=== PATIENT | female | born 1980 | race Caucasian/White ===

== ENCOUNTER 2022-04-15 08:40 | Outpatient (REF) | payer MEDICAID, SELFPAY ==
--- NOTE | 2022-04-15 08:15 | PAPFT_PTH ---
PATIENT: Jami Jones LOC: [facility]#:[id number] AGE/SX: 41/F ROOM: RE04/15/[address]: Toña Goldman : 1980 BED: DIS: 04/15/2022 SPEC #: [id number] RECD: 04/15/22 15:04 STATUS: CRISTOPHER REIona #: [id number] GEE: 04/15/22 08:[address]: Toña Goldman DEPT: [facility] Cytology RECD BY: Leesa Whittington ENTERED: 04/15/22 15:04 SP TYPE: PAPFT OTHR DR: Soraya Carlisle Tissues: 1 - CX/ENDOCX FOR PAP SMEARS Procedures: PAP THIN PREP/UVM Screening HPV DNA PROBE Comments: [id number] (CHLAMYDIA/GC)
[2022-04-16 13:49] LABS: Chlamydia Result Negative (Negative); GC Result Negative (Negative)
== END 2022-04-15 08:41 | disposition home or self-care (01) ==
LOC: NCHCN 08:40
PROVIDERS: PCP Dentist; Visit Provider Family Medicine
DX: Z12.4 Encounter for screening for malignant neoplasm of cervix (principal); Z11.3 Encounter for screening for infections with a predominantly sexual mode of transmission; Z11.51 Encounter for screening for human papillomavirus (HPV)
CPT/HCPCS: 87491; 87591; 88142; 87624

== ENCOUNTER 2024-02-17 22:10 | Outpatient (REF) | payer BC, SELFPAY ==
--- OUTSIDE RECORDS SUMMARY | 2024-02-17 22:40 | XMS_ITS | Clinical Summary ---
Author Organization [facility] Address [address] [place] [address] Care Team Providers Care Claims Specialist Name Role Phone Toña Goldman MD Primary Care Provider [phone] Allergies Active Allergy Reactions Criticality Noted Date Comments Penicillins Rash 05/09/2015 Sulfa (Sulfonamide Antibiotics) Rash 04/30 Medications predniSONE (DELTASONE) 20 mg tablet Take 20 mg by mouth 3 times daily Active diphenhydrAMINE (BENADRYL) 25 mg capsule Take 25 mg by mouth 4 times daily Active clobetasol (TEMOVATE) 0.05 % cream Apply topically to affected area 2 times daily Do not apply to face, armpit or groin. Twice daily to the legs for 10 days 60 g 1 6 Active triamcinolone (KENALOG) 0.1 % cream Apply topically to affected area 2 times daily Nightly to the trunk X 10 days. Stop sooner if symptoms resolve 454 g 0 6 Active Family History Medical History Relation Comments Breast Cancer Maternal Aunt Relation Status Comments Maternal Aunt Social History Tobacco Use Types Packs/Day Years Used Date Smoking Tobacco: Passive Smo ke Exposure - Never Smoker Alcohol Use Standard Drinks/Week Comments Yes 3 (1 standard drink = 0.6 oz pur e alcohol) Comments No Sex and Gender Information Value Date Recorded Sex Assigned at Not on file Legal Sex Female 16:27 EST Gender Identity Not on file Sexual Orientation Not on file Obstetrics History Para Term AB IAB SAB Ectopic Multiple Livin g Live Births 1 1 Date Outcome GA Total Labor Labor/2nd/3rd Weight Sex Type Anes PTL Gabriella A1 A5 Name Clin Para Plan of Treatment Health Maintenance Due Date Last Done Comments Hepatitis C Screen 1980 Hepatitis B Vaccine (1 of 3 - 19+ 3-dose series) 11/23 COVID-19 Vaccine (2023- season) 2023 Insurance [place] [address] [address] Care Teams Claims Specialist Relationship Specialty Start Date End Date Toña Goldman MD [address] [place] [id number] PCP - General 05/08/15
--- OUTSIDE RECORDS SUMMARY | 2024-02-17 22:40 | XMS_ITS | Referral Summary ---
Author Organization [facility] Address [address] [place] [address] Care Team Providers Care Project Control Officer Name Role Phone Toña Goldman MD Primary Care Provider [phone] Allergies Active Allergy Reactions Criticality Noted Date [...] symptoms resolve 454 g 0 6 Active Social History Tobacco Use Types Packs/Day Years [...] on file Sexual Orientation Not on file Plan of Treatment Not on file [place] [address] [address] Care Teams Project Control Officer Relationship Specialty Start Date End Date Toña Goldman MD [address] [facility] [place] [address] PCP - General 05/08/15
--- OUTSIDE RECORDS SUMMARY | 2024-02-17 22:40 | XMS_ITS | Encounter Summary ---
Author Organization [facility] Address [address] [place] [address] Care Team Providers Care Sequins Stringer Name Role Phone Toña Goldman MD Primary Care Provider [phone] Encounter Details Date Type Department Care Team (Late st Contact Info) Description 04/15/2022 Lab Requisition [facility] Pathology & Laboratory Medicine - [address] [address] Toña Goldman MD [address] [place] [phone] Encounter for general adult medical examination without abnormal findings; Encounter for screening for malignant neoplasm of cervix Social History Tobacco Use Types Packs/Day Years Used Date Smoking Tobacco: Passive Smo ke Exposure - Never Smoker Alcohol Use Standard Drinks/Week Comments Yes 3 (1 standard drink = 0.6 oz pur e alcohol) Comments Unknown Sex and Gender Information Value Date Recorded Sex Assigned at Not on file Legal Sex Female 16:27 EST Gender Identity Not on file Sexual Orientation Not on file documented as of this encounter Plan of Treatment Not on file documented as of this encounter Procedures Procedure Name Priority Date/Time Associated Diagnosis Comments PAP TEST Today 04/15/2022 8:15 EST Encounter for general adult medical examination without abnormal findings Encounter for screening for malignant neoplasm of cervix CHLAMYDIA/N. GONORRHOEAE AMPLIFIED NUCLEIC ACID, THINPREP Today 04/15/2022 8:15 EST HPV DNA DETECTION WITH GENOTYPING, PCR Today 04/15/2022 8:15 EST Encounter for general adult medical examination without abnormal findings Encounter for screening for malignant neoplasm of cervix documented in this encounter Results * HUMAN PAPILLOMAVIRUS (HPV) DETECTION-HIGH RISK TYPES (04/15/2022 8:15 EST) HPV other High Risk types, PCR Negative Negative 04/24/2022 15:26 [facility] Comment:No E6 or E7 mRNA is detected from HPV types 16,18,31,33,35,39,45,51,52,56,58,59,66, and 68 by rouge sifter and miller mediated amplification. Papanicolaou smear specimen (specimen) CERVIX UTERI STRUCTURE / Unknown 04/15/2022 8:15 EST 04/23/2022 10:10 EST us Toña Goldman MD MICROBIOLOGY - GENERAL ORDERAB LES Final Result Performing Organization Address City/State/[facility] Co de Phone Number [facility] [address] [place] [phone] * PAP TEST (04/15/2022 8:15 EST) Specimens A. Cervix and/or Endocervix , ThinPrep Imaging System with Manual Evaluation 04/24/2022 15:26 [facility] Specimen Adequacy Satisfactory for Evaluation - transformation zone component present 04/24/2022 15:26 [facility] General Categorization Negative for intraepithelial lesion or malignancy 04/24/2022 15:26 [facility] Attestation . 04/24/2022 15:26 [facility] at 1526 Clinical History See below 04/24/19 23 15:26 [facility] HPV The result for the Human Papillomavirus (HPV) Detection-High Risk Types is Negative. No E6 or E7 mRNA is detected from HPV types 16,18,31,33,35,39 ,45,51,52,56,58,5 9,66, and 68 by rouge sifter and miller mediated amplification.Marlene ting was performed on specimen [id number] and was resulted on 04/24/2022 1435 EST by [place], LAB INSTRUMENT RESULTS IN 04/24/2022 15:26 EST [facility] Performing Lab [facility] 04/24/2022 15:26 EST [facility] Scanned Images 04/24/2022 15:26 EST [facility] Papanicolaou smear specimen (specimen) CERVIX UTERI STRUCTURE / Unknown 04/15/2022 8:15 EST 04/16/2022 11:38 EST us Toña Goldman MD PATHOLOGY ORDERABLES Final Res ult [facility] [address] [place] [address] * CHLAMYDIA/N. GONORRHOEAE AMPLIFIED RNA, THINPREP (04/15/2022 8:15 EST) Neisseria gonorrhoeae Result Negative Negative 04/16/2022 13:44 EST [facility] Chlamydia trachomatis Result Negative Negative 04/16/2022 13:44 EST [facility] Papanicolaou smear specimen (specimen) CERVIX UTERI STRUCTURE / Unknown 04/15/2022 8:15 EST 04/16/2022 7:29 EST us Toña Goldman MD MICROBIOLOGY - GENERAL ORDERAB LES Final Result Performing Organization Address City/[facility]/ZIP Co de Phone Number [facility] [address] [place] [address] documented in this encounter Visit Diagnoses Diagnosis Encounter for general adult medical examination without abnormal findings Unspecified general medical examination Encounter for screening for malignant neoplasm of cervix Screening for malignant neoplasm of the cervix documented in this encounter Care Teams Sequins Stringer Relationship Specialty Start Date End Date Toña Goldman MD [address] [place] [phone] PCP - General 05/08/15 documented as of this encounter
--- OUTSIDE RECORDS SUMMARY | 2024-02-17 22:40 | XMS_ITS | Encounter Summary ---
Author Organization [facility] Address [address] [place] [address] Care Team Providers Care Isotope Technician Name Role Phone Toña Goldman MD Primary Care Provider [phone] Reason for Referral * Radiology Services (Routine/Next Available) - New Request Specialty Diagnoses / Procedures Referred By Christal marsh Referred To Contact Diagnoses Abnormal finding on breast imaging Procedures MA BREAST DIAGNOSTIC LORENA BILATERAL Toña Goldman MD [address] [place] [address] Phone: tel: fax: [facility] [place] Referral ID Status Reason Start Date Expiration Date V isits Requested Visits Authorized [id number] New Request 05/19/2022 1 1 Reason for Visit * Radiology Services (Routine/Next Available) - New Request Specialty Diagnoses / Procedures Referred By Christal marsh Referred To Contact Diagnoses Abnormal finding on breast imaging Procedures MA BREAST DIAGNOSTIC LORENA BILATERAL Toña Goldman MD [address] [place] [address] Phone: tel: fax: [facility] [place] Referral ID Status Reason Start Date Expiration Date V isits Requested Visits Authorized [id number] New Request 05/19/2022 1 1 Encounter Details Date Type Department Care Team (Latest Contact Info) Description 06/02/2022 9:48 EST - 06/02/2022 23:59 EST Hospital Encounter [facility] Mammography [address] [place] [address] Abnormal finding on breast imaging Discharge Disposition: Home or Self Care Social History Tobacco Use Types Packs/Day Years [...] on file documented as of this encounter Medications at Time of Discharge clobetasol (TEMOVATE) 0.05 % cream Apply topically to affected area 2 times daily Do not apply to face, armpit or groin. Twice daily to the legs for 10 days 60 g 1 05/09/2015 diphenhydrAMINE (BENADRYL) 25 mg capsule Take 25 mg by mouth 4 times daily predniSONE (DELTASONE) 20 mg tablet Take 20 mg by mouth 3 times daily triamcinolone (KENALOG) 0.1 % cream Apply topically to affected area 2 times daily Nightly to the trunk X 10 days. Stop sooner if symptoms resolve 454 g 0 05/09/2015 documented as of this encounter Discharge Disposition Disposition Code Departure Means Destination Home or Self Care documented in this encounter Plan of Treatment Not on file documented as of this encounter Procedures Procedure Name Priority Date/Time Associated Diagnosis Comments MA BREAST DIAGNOSTIC LORENA BILATERAL Routine 06/02/2022 10:13 EST Abnormal finding on breast imaging documented in this encounter Results * MA BREAST DIAGNOSTIC LORENA BILATERAL (06/02/2022 10:13 EST) Anatomical Region Laterality Modality Breast Bilateral Mammography 06/02/2022 12:0 9 EST Narrative 06/02/2022 12:09 EST INDICATION: CB WIL BREAST, SUSPICIOUS FINDING ON INITIAL MAMMO, SOLID VS CYSTIC. COMPARISON: Comparison is made to previous images. BILATERAL BREAST MAMMOGRAM: 3-D tomosynthesis and synthetic 2-D views with CAD were obtained. RIGHT BREAST: The breast tissue is of heterogeneous density, which may obscure small masses. ??No dominant mass, suspicious microcalcification or architectural distortion is identified. LEFT BREAST: The breast tissue is of heterogeneous density, which may obscure small masses. ??No dominant mass, suspicious microcalcification or architectural distortion is identified. BILATERAL BREAST ULTRASOUND RIGHT BREAST: Sonographic examination of the superior half and complete retroareolar right breast was performed. * ??Normal fibroglandular and fatty tissue is present. No solid mass, cyst or abnormal posterior shadowing is identified. LEFT BREAST: Sonographic examination of the superior half and complete retroareolar breast was performed. * ??There is a 3mm cyst located at 9 o'clock, 4 cm out from the nipple. No solid mass or abnormal posterior shadowing is identified. FINAL ASSESSMENT: ??DIAGNOSTIC RIGHT BREAST MAMMOGRAM/ULTRASOUND - BI-RADS Category 2 - Benign findings. FINAL ASSESSMENT: ??DIAGNOSTIC LEFT BREAST MAMMOGRAM/ULTRASOUND - BI-RADS Category 2 - Benign findings. RECOMMENDATION: ??The patient should revert to yearly screening mammography. The findings and recommendations were communicated to the patient by the shift nurse manager shortly following this examination. OVERALL ASSESSMENT: ??BI-RADS Category 2 - Benign findings. These results will be communicated to your patient via a lay letter from Radiology. ??If any additional imaging is needed we will contact your patient directly. us Toña Goldman MD IMG MAMMOGRAPHY ORDERABLES Fin al Result documented in this encounter Visit Diagnoses Diagnosis Abnormal finding on breast imaging Other (abnormal) findings on radiological examination of breast documented in this encounter Care Teams Isotope Technician Relationship Specialty Start Date End Date Toña Goldman MD [address] [place] [address] PCP - General 05/08/15 documented as of this encounter
--- OUTSIDE RECORDS SUMMARY | 2024-02-17 22:40 | XMS_ITS | Encounter Summary ---
Author Organization [facility] Address [address] [place] [address] Care Team Providers Care Civil Engineering Draftsperson Name Role Phone Toña Goldman MD Primary Care Provider [phone] Reason for Referral * Radiology Services (Routine/Next Available) - Authorization Not Required Specialty Diagnoses / Procedures Referred By Christal marsh Referred To Contact Diagnoses Encounter for screening mammogram for malignant neoplasm of breast Procedures MA BREAST SCREENING LORENA BILATERAL Toña Goldman MD [address] [place] [address] Phone: tel: fax: [facility] [place] Referral ID Status Reason Start Date Expiration Date Visits Requested Visits Authorized [id number] Authorization Not Required 04/15/2022 1 1 Reason for Visit * Radiology Services (Routine/Next Available) - Authorization Not Required Specialty Diagnoses / Procedures Referred By Christal marsh Referred To Contact Diagnoses Encounter for screening mammogram for malignant neoplasm of breast Procedures MA BREAST SCREENING LORENA BILATERAL Toña Goldman MD [address] [place] [address] Phone: tel: fax: [facility] [place] Referral ID Status Reason Start Date Expiration Date Visits Requested Visits Authorized [id number] Authorization Not Required 04/15/2022 1 1 Encounter Details Date Type Department Care Team (Latest Contact Info) Description 05/16/2022 14:16 EST - 05/16/2022 23:59 EST Hospital Encounter [facility] Mammography [address] [place] [address] Encounter for screening mammogram for malignant neoplasm of breast Discharge Disposition: Home or Self Care Social [...] Priority Date/Time Associated Diagnosis Comments MA BREAST SCREENING LORENA BILATERAL Routine 05/16/2022 15:17 EST Encounter for screening mammogram for malignant neoplasm of breast documented in this encounter Results * (ABNORMAL) MA BREAST SCREENING LORENA BILATERAL (05/16/2022 15:17 EST) Anatomical Region Laterality Modality Breast Bilateral Mammography 05/19/2022 9:01 EST Impressions 05/19/2022 9:01 EST RIGHT BREAST IMPRESSION: BI-RADS 0. * ??Two possible masses. LEFT BREAST IMPRESSION: BI-RADS 0. * ??Possible asymmetry. RECOMMENDATION: Need additional imaging evaluation. * ??Additional imaging of both breasts required OVERALL ASSESSMENT: BI-RADS 0: Incomplete- Need additional imaging evaluation and/ or prior mammograms for comparison. These results will be communicated to your patient via a lay letter from Radiology. If any additional imaging is needed we will contact your patient directly. Narrative 05/19/2022 9:01 EST Indications: Breast cancer screening Comparisons: None (baseline). Technique: Full field digital whole breast 2D (C-view) and 3D CC and MLO views of both breasts were obtained. CAD technology was utilized. Breast Density: The breast tissue is heterogenously dense, which may obscure small masses. Right Breast Findings: Two possible lobulated masses, in the anterior subareolar and central breast. Left Breast Findings: Possible asymmetry in the central, slightly upper breast on MLO view. Procedure Note Crispin Cueto MD - 05/19/2022 Indications: Breast cancer screening Comparisons: None (baseline). Technique: Full field digital whole breast 2D (C-view) and 3D CC and MLOviews of both breasts were obtained. CAD technology was utilized. Breast Density: The breast tissue is heterogenously dense, which mayobscure small masses. Right Breast Findings: Two possible lobulated masses, in the anteriorsubareolar and central breast. Left Breast Findings: Possible asymmetry in the central, slightly upperbreast on MLO view. IMPRESSION RIGHT BREAST IMPRESSION: BI-RADS 0. * Two possible masses. LEFT BREAST IMPRESSION: BI-RADS 0. * Possible asymmetry. RECOMMENDATION: Need additional imaging evaluation. * Additional imaging of both breasts required OVERALL ASSESSMENT: BI-RADS 0: Incomplete- Need additional imagingevaluation and/ or prior mammograms for comparison. These results will be communicated to your patient via a lay letter fromRadiology. If any additional imaging is needed we will contact yourpatient directly. Toña Goldman MD IMG MAMMOGRAPHY ORDERABLES Fin al Result documented in this encounter Visit Diagnoses Diagnosis Encounter for screening mammogram for malignant neoplasm of breast Other screening mammogram documented in this encounter Care Teams Civil Engineering Draftsperson Relationship Specialty Start Date End Date Toña Goldman MD [address] [place] [address] [place] [address] PCP - General 05/08/15 documented as of this encounter
--- OUTSIDE RECORDS SUMMARY | 2024-02-17 22:40 | XMS_ITS | Encounter Summary ---
Author Organization [facility] Address [address] [place] [address] Care Team Providers Care Line Person Name Role Phone Toña Goldman MD Primary Care Provider [phone] Reason for Visit * Reason Comments New Patient Visit Rash all over body, stomc h of concern. Encounter Details Date Type Department Care Team (Late st Contact Info) Description 05/09/2015 11:15 EST Office Visit [facility] Dermatology 3rd Floor [facility] [address] [place] [address] Aixa Moser MD [address] [place] [phone] Rash and other nonspecific skin eruption (Primary Dx) Social History Tobacco Use Types Packs/Day Years [...] on file documented as of this encounter Discharge Diagnoses Diagnosis R21 Rash and other nonspecific skin eruption-R21[ICD-10-CM] documented in this encounter Patient Instructions * Patient Instructions* Aixa Moser - 05/09/2015 11:35 EST For the prednisone, taper over the next 2 weeks. 60 mg X 3 days 40 mg X4 days 20 mg X4 days 20 mg every other day until 2 weeks Then stop DERMATOLOGY WOUND CARE INSTRUCTIONS FOR SKIN BIOPSY The DRESSING/BANDAID should remain in place for 24 hours. You may shower or bathe after 24 hours; remove the bandage and replace it after the shower. DISCOMFORT: Extra-Strength Tylenol, as directed by cocoa mill operator, usually relieves any pain you may have. BLEEDING: You may notice some blood on the edges of the dressing the first day and this is NORMAL. If the bleeding soaks through the dressing, remove the dressing, and apply firm, steady pressure with a moist clean wash cloth for fifteen minutes. If the bleeding stops, redress the wound, if not, call our office at . ACTIVITY: You may resume normal activity in 1 day unless instructed otherwise. WOUND CARE: Wash hands with soap and water before changing the dressing. Change the dressing daily and when it becomes wet. Clean the wound daily with mild soap and water. You may gently loosen any crusts with a cotton swab. The wound may be slightly tender and may bleed a small amount. A small amount of discharge is normal, and occasionally this appears yellow. Apply a thin layer of sterile petroleum jelly over the wound. Cover the wound with a Telfa (non-stick) dressing or bandage. It is important to keep the wound covered. CONTACT THE OFFICE IF YOU EXPERIENCE: increased redness warmth to touch increased pain drainage with a foul odor rapid swelling of the wound fever or chills Please call our office or . documented in this encounter Ordered Prescriptions Prescription Sig Dispense Quantity Refills Last Filled Start Date End Date triamcinolone (KENALOG) 0.1 % cream Apply topically to affected area 2 times daily Nightly to the trunk X 10 days. Stop sooner if symptoms resolve 454 g 0 05/09/2015 clobetasol (TEMOVATE) 0.05 % cream Apply topically to affected area 2 times daily Do not apply to face, armpit or groin. Twice daily to the legs for 10 days 60 g 1 05/09/2015 documented in this encounter Progress Notes * Aixa Moser - 05/15/2015 1602 ESTQuick Note: Pt aware and is improving clinically. Aixa Moser MD 05/15/2015 * Aixa Moser - 05/14/2015 1713 ESTQuick Note: Called and left message requesting return call. She is using triamcinolone and hopefully experiencing improvement. Aixa Moser MD 05/14/2015 * Aixa Moser - 05/09/2015 1102 EST Dermatology Outpatient Visit Note Chief Complaint Patient presents with ??? New Patient Visit ??? Rash all over body, stomch of concern. SUBJECTIVE Noe Kumar is a 34 y.o. female who presents for new evaluation and treatment for a rash. Started when she was traveling in [place] and developed poison oak. She was treating it with Calamine. Then she started a prednisone taper but she seemed to develop a new rash when on the prednisone. Her legs are very itchy and her hands but not so much elsewhere. She is otherwise healthy. No joint pain or mucosal lesions. For full Medical, Surgical, Family, and Social histories, please see the History section of this encounter in the electronic chart which I have personally reviewed. For Review of Systems, Medications and Allergies, please see those sections of this encounter in the electronic chart which I have also reviewed. She has a current medication list which includes the following prescription(s): diphenhydramine andprednisone. She is allergic to penicillins and sulfa (sulfonamide antibiotics). OBJECTIVE VS: There were no vitals taken for this visit. Ms. Kumar is healthy female with a normal affect. She is alert and interactive. She has a fair skin phenotype. Cutaneous full body examination including the hair, scalp, face, eyelids, lips, neck, chest, back, abdomen, all four extremities, hands, feet, digits and nails was performed.The examination was normal with the addition of the following comments: There were no lesions suspicious for malignancy. On the trunk and extremities she has too numerous to count edematous pink targetoid and rare purpuric papules On the lower extrmeities she has crusted pink plaques ASSESSMENT 1. Contact dermatitis induced erythema multiforme, most likely PLAN 1. We discussed the need for biopsy of this eruption today. The patient understands and agrees. Risks were explained to the patient and wound care was discussed. The eruption was biopsied with punch technique per procedure report below and the attending was present for the entire procedure. We willcontact the patient with pathology results. 2. Start triamcinolone cream to the body, clobetasol to the contact dermatitis. Risks explained. She will f/u as planned or in the interim should problems arise. PUNCH BIOPSY PATIENT : Noe Kumar : MRN: [id number] SURGEON: Aixa Moser MD The indication, risks, benefits and alternatives to this procedure were discussed in detail in withthe patient and all questions were answered. Informed consent was obtained in writing. PROCEDURE NOTE: Specimen A Procedure: Punch Biopsy Site: right hip Anesthesia: 1% lidocaine with epinephrine 1:100,000 local infiltration Prep: Alcohol The lesion was prepped and anesthetized with local anesthesia. The specimen was removed with a 4.0 mm punch trephine. Hemostasis was achieved with pressure. The wound was closed with 4.0 Prolene (polypropylene) suture. A sterile dressing was applied over petrolatum ointment. Verbal and written wound care instructions were given. The specimen was submitted to pathology for histological evaluation. Suture removal kit Aixa Moser MD 05/09/2015 11:02 * Caron Wisdom - 05/09/2015 1054 EST Review of Systems Constitutional: Positive for fatigue. Negative for fever and unexpected weight change. HENT: Negative for mouth sores. Eyes: Negative for pain. Respiratory: Negative for cough and shortness of breath. Cardiovascular: Negative for chest pain and palpitations. Gastrointestinal: Negative for nausea, vomiting, abdominal pain, diarrhea, constipation and blood in stool. Genitourinary: Negative for dysuria, frequency and hematuria. Musculoskeletal: Positive for joint swelling. Negative for myalgias, arthralgias and muscle stiffness in the morning. Skin: Positive for rash. Neurological: Negative for numbness and headaches. Endo/Heme/Allergies: Does not bruise/bleed easily. Psychiatric/Behavioral: Positive for sleep disturbance. The patient is not nervous/anxious. Caron Cruzost 05/09/2015 10:54 Patient Education Topic: Wound Care Method: Verbal Taught to: Patient Barriers: None Outcomes: verbalized understanding Signature:Caron Wisdom 05/09/2015 16:49 documented in this encounter Plan of Treatment Scheduled Orders Name Type Priority Associated Diagnoses Orde r Schedule SURGICAL PATHOLOGY- ORDER ONLY Pathology Routine Rash and other nonspecific skin eruption Ordered: 05/09/2015 documented as of this encounter Procedures Procedure Name Priority Date/Time Associated Diagnosis Comments SURGICAL PATHOLOGY Routine 05/09/2015 15 :39 EST documented in this encounter Results * SURGICAL PATHOLOGY (05/09/2015 15:39 EST) Pathology Report: SURGICAL PATHOLOGY REPORT Reports generated via electronic interface contain original data; however they are lacking the format of the original report. Caution should be taken when reading/interpret ing unformatted reports. Name: ? NOE KUMAR ? Accession #: ? [id number] ? : ? 1980 (Age: 34) ??F ? Collect Date: ? 05/09/2015 ? Location: ? [facility] ? Receive Date: ? 05/10/2015 ? Provider: AIXA MOSER MD Copy to: ? Final Pathologic Diagnosis: SKIN OF THIGH, RIGHT, PUNCH BIOPSY: - Superficial perivascular dermatitis with mild spongiosis and interface inflammation. ??See comment. - Features suggestive of keratosis pilaris. Comment: Multiple sections of the biopsy were reviewed. ??The histologic features are most suggestive of a drug-related eruption. ??Spongiotic dermatitis (in particular allergic contact dermatitis given the clinical history) cannot be entirely excluded, but is less likely given the paucity of spongiosis and lack of parakeratosis. ??Features of erythema multiforme are not present. ??There are changes suggestive of concomitant keratosis pilaris. ??(Dr. Merchant)/[facility] Microscopic Description: Sections consist of a punch biopsy of skin to the superficial subcutis. ??The stratum corneum is generally composed of a normal layer of basketweave orthokeratin. ??The epidermis is of relatively normal thickness and rete architecture. ??There is slight spongiosis in focal areas. ??The spongiosis is associated with exocytosis of rare lymphocytes. ??Other areas have subtle interface vacuolar change with rare degenerated keratinocytes noted. ??The superficial dermis has a moderately dense perivascular and interstitial infiltrate. ??The infiltrate includes eosinophils in addition to lymphomononuclear cells. ??The vessels show reactive changes and there is focal erythrocyte extravasation. ??On some of the deeper sections, there is a central follicle in the mid dermis that is mildly distorted. ??The lumen is distended by orthokeratin and, in some areas, the hair shaft is penetrating the epithelium. There is perifollicular fibrosis. ??(Dr. Merchant)/[facility] Document reviewed and electronically signed by: MAMADOU MERCHANT MD Report ??Date: 05/14/2015 15:54 By the signature above, the attending physician certifies that he/she has personally conducted a gross and/or microscopic examination of the described specimens and rendered or confirmed the above diagnosis. Specimen(s) Received: Right thigh Clinical History: Widespread eruption after poison oak; EM vs. other; clinical diagnosis code: R21 ? Gross Description: ? Received in formalin labelled with proper patient identification (initials G, E) and right thigh is a punch biopsy of toledo-pink skin (0.3 cm in diameter and 0.5 cm in thickness). Submitted intact in 1. Ruth Deutsch 05/10/2015 4:36 PM End of Report [facility] 05/09/2015 15:3 9 EST 05/10/2015 15:39 EST us Aixa Moser MD PATHOLOGY ORDERABLES Final Re sult [facility] [address] [place] [address] documented in this encounter Visit Diagnoses Diagnosis Rash and other nonspecific skin eruption- Primary documented in this encounter Historical Medications * This list may reflect changes made after this encounter. diphenhydrAMINE (BENADRYL) 25 mg capsule Take 25 mg by mouth 4 times daily predniSONE (DELTASONE) 20 mg tablet Take 20 mg by mouth 3 times daily added in this encounter Care Teams Line Person Relationship Specialty Start Date End Date Toña Goldman MD [address] [place] [phone] PCP - General 05/08/15 documented as of this encounter
--- OUTSIDE RECORDS SUMMARY | 2024-02-17 22:40 | XMS_ITS | Encounter Summary ---
Author Organization [facility] Address [address] [place] [address] Care Team Providers Care Jet Wiper Name Role Phone Toña Ortiz MD Primary Care Provider [phone] Encounter Details Date Type Department Care Team (Late st Contact Info) Description 05/07/2017 Results Only [facility] [phone] Toña Ortiz MD [address] [place] [phone] Social History Tobacco Use Types Packs/Day Years [...] Name Priority Date/Time Associated Diagnosis Comments PAP TEST- RESULT ONLY Routine 05/07/2017 0:00 EST documented in this encounter Results * PAP TEST- RESULT ONLY (05/07/2017 0:00 EST) Pathology Report: CYTOPATHOLOGY REPORT Reports generated via electronic interface contain original data; however they are lacking the format of the original report. Caution should be taken when reading/interpreti ng unformatted reports. Name: ? NOE KUMAR ? Accession #: ? [id number] : ? 1980 (Age: 36) ??F ?Collect Date: ? 05/07/2017 Location: ? [facility] ? Receive Date: ? 05/11/2017 Provider: ?TOÑA ORTIZ MD Copy to: ? Specimen/Source: ?Pap Test, Cervix, ThinPrep Imaging System with manual evaluation Last Menstrual Period: ? SPECIMEN ADEQUACY ? Satisfactory for Evaluation - transformation zone component present GENERAL CATEGORIZATION ? Negative for Intraepithelial Lesion or Malignancy ? Document reviewed and electronically signed by: ? REENA Rangel(ASCP) ? Report Date: ??05/14/2017 11:52 End of Report [facility] 05/07/2017 05/11/2017 us Toña Ortiz MD PATHOLOGY ORDERABLES Final Res ult Performing Organization Address City/State/[facility] Co de Phone Number [facility] [address] [place] [address] documented in this encounter Visit Diagnoses Not on filedocumented in this encounter Care Teams Jet Wiper Relationship Specialty Start Date End Date Toña Ortiz MD [address] [place] [phone] PCP - General 05/08/15 documented as of this encounter
--- OUTSIDE RECORDS SUMMARY | 2024-02-17 22:40 | XMS_ITS | Encounter Summary ---
Author Organization [facility] Address [address] [place] [address] Care Team Providers Care Detective Sergeant Name Role Phone Toña Goldman MD Primary Care Provider [phone] Reason for Referral * Radiology Services (Routine/Next Available) - Authorization Not Required Specialty Diagnoses / Procedures Referred By Christal marsh Referred To Contact Diagnoses Abnormal finding on breast imaging Procedures US BREAST LIMITED BILATERAL Toña Goldman MD [address] [place] [address] Phone: tel: fax: [facility] Referral ID Status Reason Start Date Expiration Date Visits Requested Visits Authorized [id number] Authorization Not Required 05/19/2022 1 1 Reason for Visit * Radiology Services (Routine/Next Available) - Authorization Not Required Specialty Diagnoses / Procedures Referred By Christal marsh Referred To Contact Diagnoses Abnormal finding on breast imaging Procedures US BREAST LIMITED BILATERAL Toña Goldman MD [address] [place] [address] Phone: tel: fax: [facility] Referral ID Status Reason Start Date Expiration Date Visits Requested Visits Authorized [id number] Authorization Not Required 05/19/2022 1 1 Encounter Details Date Type Department Care Team (Latest Contact Info) Description 06/02/2022 9:[address] [facility] Ultrasound [address] [place] [address] Abnormal finding on breast imaging Discharge Disposition: [...] Procedure Name Priority Date/Time Associated Diagnosis Comments US BREAST LIMITED BILATERAL Routine 06/02/2022 10:48 EST Abnormal finding on breast imaging documented in this encounter Results * US BREAST LIMITED BILATERAL (06/02/2022 10:48 EST) Anatomical Region Laterality Modality Breast Bilateral Ultrasound 06/02/2022 12:0 9 EST Narrative 06/02/2022 12:09 [...] were communicated to the patient by the land surveyor manager shortly following this examination. OVERALL ASSESSMENT: ??BI-RADS Category 2 - Benign findings. These results will be communicated to your patient via a lay letter from Radiology. ??If any additional imaging is needed we will contact your patient directly. us Toña Goldman MD G US ORDERABLES Final Result documented in this encounter Visit Diagnoses Diagnosis Abnormal finding on breast imaging Other (abnormal) findings on radiological examination of breast documented in this encounter Care Teams Detective Sergeant Relationship Specialty Start Date End Date Toña Goldman MD [address] [place] [phone] PCP - General 05/08/15 documented as of this encounter
--- OUTSIDE RECORDS SUMMARY | 2024-02-17 22:40 | XMS_ITS | Encounter Summary ---
Author Organization [facility] Address [address] [place] [address] Care Team Providers Care Research Quality Assurance Analyst Name Role Phone None, Provider Primary Care Provider Toña Lucas MD Primary Care Provider [phone] Reason for Visit * Reason Onset Date Comments Appointment Related 05/07/2015 Encounter Details Date Type Department Care Team (Late st Contact Info) Description 05/07/2015 Telephone [facility] Dermatology 5th Floor [facility] [address] [place], [place] [address] Marietta Garnett MD [address] [place], [place] [phone] Appointment Related Social History Tobacco Use Types Packs/Day Years Used Date Smoking Tobacco: Never Assessed Comments Unknown Sex and Gender Information Value Date Recorded Sex Assigned at Not on file Legal Sex Female 16:27 EST Gender Identity Not on file Sexual Orientation Not on file documented as of this encounter Miscellaneous Notes * Telephone Encounter - Kira Alfonso RN - 05/08/2015 0821 EST Patient returned call to schedule appointment Unable to come in today as her car is in the shop Patient scheduled 2.10.16 at 1115 AM with MD KIRA Shaikh, JOANNA 05/08/2015 8:22 * Telephone Encounter - Caron Wisdom - 05/07/2015 1628 EST Left message for patient to call back to schedule appointment for poison oak on chest and back. documented in this encounter Plan of Treatment Not on file documented as of this encounter Visit Diagnoses Not on filedocumented in this encounter Care Teams Research Quality Assurance Analyst Relationship Specialty Start Date End Date None, Provider PCP - General 05/07/15 05/07/15 Toña Goldman MD [address] [place] [phone] PCP - General 05/08/15 documented as of this encounter
[2024-02-19 12:40] LABS: Chlamydia Result Negative (Negative); GC Result Negative (Negative)
== END 2024-02-17 22:11 | disposition home or self-care (01) ==
LOC: NCHCN 22:10
PROVIDERS: PCP Dentist; Visit Provider Family Medicine
DX: Z11.3 Encounter for screening for infections with a predominantly sexual mode of transmission (principal)
CPT/HCPCS: 87491; 87591